=== PATIENT | female | born 1985 | race Two or more races ===

== ENCOUNTER 2021-04-02 15:38 | Emergency (ER) | payer MEDICAID ==
[~2021-04-02] VITALS: Ht 162.6 cm; Wt 77.1 kg
[2021-04-02] MEDS ORDERED: IBUP-1955 PO (16:19)
[2021-04-02] MEDS ORDERED: SILV20CR13 TP (16:19)
[2021-04-02] MEDS ORDERED: HYDROCODONE/APAP 5/325MG TABLET PO ONE (16:30)
[2021-04-02] MEDS ORDERED: HYDROCODONE/APAP 5/325MG TABLET ONE (16:43)
[2021-04-02] MEDS ORDERED: TDAP [DIPH/PERTUSSIS/TET] 0.5 ML VIAL IM ONE ×2 (16:43→17:00)
[2021-04-02] MEDS ORDERED: SILVER SULFADIAZINE CREAM 25 GM TUBE ONE (17:03)
[2021-04-02 17:12] VITALS: BP 119/81
--- NOTE | 2021-04-02 17:12 | NUR ---
Patient discharged to home in stable condition. Written and verbal after care instructions given. Patient verbalizes understanding of instruction.
[2021-04-02] MEDS ORDERED: SILVER SULFADIAZINE CREAM 25 GM TUBE TP ONE (17:30)
== END 2021-04-02 17:12 | disposition home or self-care (01) ==
LOC: ER 15:51
DX: T23.232A Burn of second degree of multiple left fingers (nail), not including thumb, initial encounter (principal); Z60.2 Problems related to living alone; Z79.899 Other long term (current) drug therapy; X17.XXXA Contact with hot engines, machinery and tools, initial encounter; Y93.G3 Activity, cooking and baking; Y92.89 Other specified places as the place of occurrence of the external cause; Y99.8 Other external cause status
CPT/HCPCS: 90715

== ENCOUNTER 2024-06-17 00:08 | Emergency (ER) | payer MEDICAID, OTHER ==
[~2024-06-17] VITALS: Ht 165.1 cm; Wt 83.9 kg
[~2024-06-17 00:08] MED LIST: IBUP-1955 PO; SILV20CR13 TP
[2024-06-17] MEDS ORDERED: ONDANSETRON 4 MG TAB.RAPDIS ONE (01:26)
[2024-06-17] MEDS: ONDANSETRON 4 MG TAB.RAPDIS SL ONE (01:27)
[2024-06-17] MEDS: BUPRENORPHINE HCL 2 MG TAB.SUBL SL ONE (02:00)
[2024-06-17] MEDS ORDERED: BUPRENORPHINE HCL 2 MG TAB.SUBL SL ONE (02:05)
[2024-06-17 08:21] VITALS: BP 115/74; O2SAT 98
== END 2024-06-17 07:45 | disposition home or self-care (01) ==
LOC: ER 00:09
DX: T40.411A Poisoning by fentanyl or fentanyl analogs, accidental (unintentional), initial encounter (principal); Z59.00 Homelessness unspecified; Y92.89 Other specified places as the place of occurrence of the external cause
CPT/HCPCS: 99285; Q0162